=== PATIENT | female | born 1960 | race Caucasian/White ===

== ENCOUNTER 2017-09-25 16:20 | Emergency (ER) | payer BC ==
--- NOTE | 2017-09-25 17:02 | UC ---
FLU HPI - HPI Summary HPI Summary: 57 y/o female presents to the urgent care c/o sore throat, TONY, body aches, chills since yesterday morning. Pt reports she ate breakfast this morning and he had mild cramping abdominal pain and Nausea, bur not diarrhea or vomiting. Pt has decrease appetite since then, but she is drinking fluids. Pt is concern w / the flu since she had it in 05/2017 and it feels the same. She took some tums this morning w/o any relief. Pt denies fever, cough, SOB, chest pain, V/D. Pt had a normal BM this morning, no blood in the stool. - History of Current Complaint Chief Complaint: UCRespiratory Stated Complaint: FLU LIKE SXS Time Seen by Provider: 09/25/17 17:00 Hx Obtained From: Patient ?: No - menopausal Onset/Duration: Gradual Onset, Lasting Days - 1 day, Still Present, Worse Since - this morning Severity Currently: Mild Severity Initially: Mild Pain Intensity: 2 Pain Scale Used: 0-10 Numeric Associated Signs & Symptoms: Positive: Myalgia, Sore Throat - mild, Headache - Risk Factors Influenza Risk Factors: Negative - Allergy/Home Medications Allergies/Adverse Reactions: Allergies Allergy/AdvReac Type Severity Reaction Status Date / Time No Known Allergies Allergy Verified 09/25/17 17:02 PMH/Surg Hx/FS Hx/Imm Hx Previously Healthy: Yes - Pt denies PMHX - Family History Known Family History: Positive: Hypertension, Diabetes Family History: Dyslipidemia - Social History Occupation: Employed Full-time Lives: With Family Review of Systems Constitutional: Chills, Fatigue, Other - body aches Skin: Negative Eyes: Negative ENT: Sore Throat - mild yesterday, Nasal Discharge, Sinus Congestion Respiratory: Negative Cardiovascular: Negative Gastrointestinal: Negative Genitourinary: Negative Motor: Negative Neurovascular: Negative Musculoskeletal: Negative Neurological: Headache Psychological: Negative Is Patient Immunocompromised?: No All Other Systems Reviewed And Are Negative: Yes Physical Exam - Summary Physical Exam Summary: VITAL SIGNS: Reviewed. GENERAL: Patient is a well developed and nourished female who is sitting comfortable in the examining table. Patient is not in any acute respiratory distress. HEAD AND FACE: No signs of trauma. No ecchymosis, hematomas or skull depressions. No sinus tenderness. edematous erythematous nasal mucosa with yellowish discharge, EYES: PERRLA, EOMI x 2, No injected conjunctiva, clear watery eyes, no nystagmus. No photophobia. EARS: Hearing grossly intact. Ear canals and tympanic membranes are within normal limits. MOUTH: Positive pharynx with erythema, no exudates,no palatal petechiae. no B/L tonsillar enlargement Uvula in midline. NECK: Supple, trachea is midline, Positive anterior cervical lymphadenopathy, no JVD, no carotid bruit, no c-spine tenderness, neck with full ROM. No meningeal signs, no Kernig's or brudzinskis signs. CHEST: Symmetric, no tenderness at palpation LUNGS: Clear to auscultation bilaterally. No wheezing or crackles. CVS: Regular rate and rhythm, S1 and S2 present, no murmurs or gallops appreciated. ABDOMEN: Soft, non-tender. No signs of distention. No rebound no guarding, and no masses palpated. Bowel sounds are normal. EXTREMITIES: FROM in all major joints, no edema, no cyanosis or clubbing. NEURO: Alert and oriented x 3. No acute neurological deficits. Speech is normal and follows commands. SKIN: Dry and warm Triage Information Reviewed: Yes Flu Course/Dx - Course Course Of Treatment: 57 y/o female presents to the urgent care c/o sore throat, TONY, body aches, chills since yesterday morning. Pt reports she ate breakfast this morning and he had mild cramping abdominal pain and Nausea, bur not diarrhea or vomiting. Pt has decrease appetite since then, but she is drinking fluids. Pt is concern w/ the flu since she had it in 05/2017 and it feels the same. She took some tums this morning w/o any relief. Pt denies fever, cough, SOB, chest pain, V/D. Pt had a normal BM this morning, no blood in the stool. Hx obtained. Pt w/ URI on examination. Pt w/ ciral syndrome on examination. Rapid Influenza A&B ordered: negative. However, Pt sill concerned and request TAmiflu since she has a premature grandson at home. Probably symptoms are too early. Pt Rx Tamiflu PO just in case if symptoms worsen and advised on hand washing and wear a mask to avoid spreading. Pt advised to rest, increase fluid intake, eat well and avoid strenuous exercise. If symptoms do not improve or worsen advised to return to the urgent care or f/u with her PCP in 3 days for further evaluation and treatment. Pt understood and agreed with plan of care. - Differential Dx/Diagnosis Differential Diagnosis/HQI/PQRI: Bronchitis, Influenza, Upper Respiratory Infection, Other - pharyngitis Provider Diagnoses: 1- Viral syndrome Discharge - Discharge Plan Condition: Stable Disposition: HOME Prescriptions: Oseltamivir CAP* [Tamiflu CAP*] 75 mg PO BID #10 cap Patient Education Materials: Viral Syndrome (ED) Referrals: Jimmy Ponce MD [Primary Care Provider] - 3 Days Additional Instructions: 1- Influenza A&B are negative, However TAmiflu sent to pharmacy if symptoms worsen please start taking the full course of the antiviral to avoid resistance. Encourage hand washing and wear a mask to avoid spreading. 2-Please take Tylenol PO q6-8hrs prn as instructed after meals to alleviate fever, and sore throat. Increase fluid intake, eat well, rest and avoid strenuous exercise 3-If symptoms do not improve or worsen please return to the urgent care or f/u with your PCP in 3 days for further evaluation and treatment.
[2017-09-25 17:08] VITALS: BP 118/62
== END 2017-09-25 17:41 | disposition home or self-care (01) ==
LOC: UCCORT 16:20
DX: B34.9 Viral infection, unspecified (principal)
CPT/HCPCS: 87502; 99212; G0463